=== PATIENT | male | born 1945 | race Caucasian/White ===

== ENCOUNTER → 2019-08-04 | Outpatient (CLI) | payer MEDICARE ==
[~2019-08-04] MED LIST: ASCO10004 PO; Blood pressure med; MV-M1TAB16 PO; magnesium; zinc
[2019-08-04 11:04] LABS: BASOPHILS # (AUTO) 0.03 x10^3/uL (0-0.1); BASOPHILS % (AUTO) 1 % (0-1); EOSINOPHILS % (AUTO) 4 % (1-7); LYMPHOCYTES # (AUTO) 1.76 x10^3/uL (1-3.4); LYMPHOCYTES % (AUTO) 32 % (22-44); MD NO; MEAN CORPUSCULAR HEMOGLOBIN 35.5 pg (27.5-34.5); MEAN CORPUSCULAR HGB CONC 33.3 g/dL (33.2-36.2); MEAN CORPUSCULAR VOLUME 106.6 fL (81-97); MEAN PLATELET VOLUME 7.6 fL (7.4-10.4); MONOCYTES # (AUTO) 0.46 x10^3/uL (0.2-0.8); MONOCYTES % (AUTO) 8 % (2-9); NEUTROPHILS # (AUTO) 3.11 x10^3/uL (1.8-6.8); NEUTROPHILS % (AUTO) 56 % (42-75); PLATELET COUNT 246 x10^3/uL (130-400); RED BLOOD COUNT 4.38 x10^6/uL (4.38-5.82); RED CELL DISTRIBUTION WIDTH 13.5 % (9.4-14.8)
[2019-08-04 11:06] LABS: MICROSCOPIC NOT IND
[2019-08-04 11:15] LABS: INTERNATIONAL NORMALIZED RATIO 0.93 (0.93-1.1); PROTHROMBIN TIME 9.9 Seconds (9.6-11.5)
[2019-08-04 11:17] LABS: ALANINE AMINOTRANSFERASE 52 U/L (12-78); ALBUMIN 3.8 g/dL (3.4-5.0); ANION GAP 4 mmol/L (5-15); CALCIUM 9.1 mg/dL (8.5-10.1); CHLORIDE 109 mmol/L (98-107)
[2019-08-04 11:19] LABS: ALKALINE PHOSPHATASE 68 U/L (45-117); BILIRUBIN,TOTAL 0.6 mg/dL (0.2-1.0); TOTAL PROTEIN 7.5 g/dL (6.4-8.2)
== END | disposition home or self-care (01) ==
LOC: STAR 09:54
PROVIDERS: ATTEND Neurological Surgery
DX: Z01.818 Encounter for other preprocedural examination (principal); M48.061 Spinal stenosis, lumbar region without neurogenic claudication; M47.814 Spondylosis without myelopathy or radiculopathy, thoracic region
CPT/HCPCS: 36415; 71046; 80053; 81003; 85025; 85610; 85730; 93005

== ENCOUNTER 2019-08-13 07:02 | Inpatient (IN) | payer MEDICARE ==
[~2019-08-13] VITALS: Ht 180.3 cm; Wt 98.6 kg
[2019-08-13] MEDS ORDERED: BUPIVACAINE/PF-EPI 0.5% 1:200K ONE (07:10)
[2019-08-13] MEDS ORDERED: BUPIVACAINE/PF-EPI 0.25% 1:200K ONE ×2 (07:10→10:07)
[2019-08-13] MEDS ORDERED: methylPREDNISolone SOD SUCC 40 MG/ML ONE (07:10)
[2019-08-13] MEDS ORDERED: BACITRACIN 50,000 UNIT ONE (07:11)
[2019-08-13] MEDS ORDERED: methylPREDNISolone SOD SUCC 125 MG/2 ML ONE (07:16)
[2019-08-13] MEDS ORDERED: CHLORHEXIDINE 15 ML UDC ONE (07:38)
[2019-08-13] MEDS ORDERED: CHLORHEXIDINE 15 ML UDC MM STA ×2 (07:59→08:57)
[2019-08-13] MEDS ORDERED: LEVO75TA5 PO (08:33)
[2019-08-13] MEDS ORDERED: LISI-170 PO (08:33)
[2019-08-13] MEDS ORDERED: MIDAZOLAM 1 MG/ML, 2ML ONE (08:49)
[2019-08-13] MEDS ORDERED: FENTANYL PF 250 MCG/5ML ONE (08:49)
[2019-08-13] MEDS ORDERED: LACTATED RINGERS 1,000 ML IV SCH (08:56)
[2019-08-13] MEDS ORDERED: CHLORHEXIDINE 15 ML UDC MM ONE (09:30)
[2019-08-13] MEDS ORDERED: ROCURONIUM 10MG/ML,5ML ONE (10:27)
[2019-08-13] MEDS ORDERED: ONDANSETRON 2MG/ML, 2ML ONE (10:27)
[2019-08-13] MEDS ORDERED: PROPOFOL 10 MG/ML, 20ML ONE (10:27)
[2019-08-13] MEDS ORDERED: CEFAZOLIN 1,000 MG ONE (10:27)
[2019-08-13] MEDS ORDERED: SUCCINYLCHOLINE 20 MG/ML, 10ML ONE (10:27)
[2019-08-13] MEDS ORDERED: DEXAMETHASONE 4 MG/ML, 1ML ONE (10:27)
[2019-08-13] MEDS ORDERED: OXYcodone 5 MG/5 ML ORAL.SOL UDC PO PRN (11:00)
[2019-08-13] MEDS ORDERED: HYDROmorphone 1 MG/ML, 1ML INJ IV PRN (11:00)
[2019-08-13] MEDS ORDERED: KETOROLAC 30 MG/1 ML IV PRN (11:00)
[2019-08-13] MEDS ORDERED: MEPERIDINE/PF 25MG/0.5ML IVPush PRN (11:00)
[2019-08-13] MEDS ORDERED: hydrALAzine 20 MG/ML, 1ML IV PRN (11:00)
[2019-08-13] MEDS ORDERED: PROMETHAZINE 25 MG/ML, 1ML IV PRN (11:00)
[2019-08-13] MEDS ORDERED: DIAZEPAM 5 MG/ML, 2ML IV PRN ×2 (11:00)
[2019-08-13] MEDS ORDERED: METOCLOPRAMIDE 5 MG/ML, 2ML IV PRN (11:00)
[2019-08-13] MEDS ORDERED: ALBUTEROL SULFATE 2.5 MG/3 ML NPPB PRN (11:00)
[2019-08-13] MEDS ORDERED: LABETALOL 5MG/ML, 20ML IV PRN (11:00)
[2019-08-13] MEDS ORDERED: ONDANSETRON 2MG/ML, 2ML IVPush PRN (11:00)
[2019-08-13] MEDS ORDERED: FENTANYL PF 100 MCG/2ML ONE (12:26)
[2019-08-13] MEDS ORDERED: ACETAMINOPHEN 650 MG/20.3 ML UDC ONE (12:26)
[2019-08-13] MEDS ORDERED: OXYcodone 5 MG/5 ML ORAL.SOL UDC ONE (12:27)
[2019-08-13] MEDS ORDERED: ACETAMINOPHEN 650 MG/20.3 ML UDC PO PRN (12:30)
[2019-08-13] MEDS: FENTANYL PF 100 MCG/2ML IV PRN ×2 (12:32→12:53)
[2019-08-13] MEDS ORDERED: METHOCARBAMOL 1,000 MG in DEXTROSE 5% 100 ML IV ONE ×2 (12:45→14:30)
[2019-08-13] MEDS ORDERED: MAGNESIUM HYDROXIDE 8%, 30ML UDC PO PRN (14:30)
[2019-08-13] MEDS ORDERED: ONDANSETRON 2MG/ML, 2ML IV PRN (14:30)
[2019-08-13] MEDS ORDERED: CEFAZOLIN PMX 1GM/50ML 50 ML IVPB SCH (14:30)
[2019-08-13] MEDS ORDERED: BISACODYL 10 MG SUPP PR PRN (14:30)
[2019-08-13] MEDS ORDERED: morphine SULFATE 10 MG/ML, 1ML IV PRN (14:30)
[2019-08-13] MEDS ORDERED: TIZANIDINE 2MG TABLET PO PRN (14:30)
[2019-08-13] MEDS ORDERED: PROMETHAZINE 25 MG/ML, 1ML IM PRN (14:30)
[2019-08-13] MEDS: DIPHENHYDRAMINE 50 MG/ML, 1ML IVPush SCH ×2 (14:47→21:17)
[2019-08-13] MEDS: DIPHENHYDRAMINE 25 MG CAPSULE PO SCH ×2 (14:47→21:17)
[2019-08-13] MEDS ORDERED: LISINOPRIL 20 MG TABLET ONE (14:57)
[2019-08-13 15:11] VITALS: BP 156/80
[2019-08-13] MEDS: NS + 20MEQ KCL 1,000 ML IV SCH (15:23)
[2019-08-13] MEDS: LISINOPRIL 20 MG TABLET PO SCH (15:23)
[2019-08-13] MEDS: OXYcodone IR 5MG TABLET PO PRN ×2 (16:24→21:11)
[2019-08-13] MEDS: CEFAZOLIN PMX 1GM/50ML 50 ML IVPB SCH (18:38)
[2019-08-13 19:40] VITALS: BP 119/66
[2019-08-13] MEDS ORDERED: METHOCARBAMOL 750 MG in DEXTROSE 5% 100 ML IV SCH (20:30)
[2019-08-13] MEDS: METHOCARBAMOL 750 MG in DEXTROSE 5% 100 ML IV SCH (21:02)
[2019-08-14 01:13] VITALS: BP 103/67
[2019-08-14] MEDS: CEFAZOLIN PMX 1GM/50ML 50 ML IVPB SCH (02:07)
[2019-08-14] MEDS: NS + 20MEQ KCL 1,000 ML IV SCH ×3 (02:07→20:05)
[2019-08-14 03:50] VITALS: BP 98/60
[2019-08-14] MEDS: METHOCARBAMOL 750 MG in DEXTROSE 5% 100 ML IV SCH ×2 (04:12→12:30)
[2019-08-14] MEDS: HYDROcodone/APAP 10/325 MG TABLET PO PRN ×4 (04:15→20:10)
[2019-08-14] MEDS: DIPHENHYDRAMINE 50 MG/ML, 1ML IVPush SCH (05:47)
[2019-08-14] MEDS: DIPHENHYDRAMINE 25 MG CAPSULE PO SCH (05:47)
[2019-08-14] MEDS: LEVOTHYROXINE 75 MCG TABLET PO SCH (06:00)
[2019-08-14 07:14] VITALS: BP 120/68
[2019-08-14] MEDS: SENNA/DOCUSATE TABLET PO SCH (08:25)
[2019-08-14] MEDS: LISINOPRIL 20 MG TABLET PO SCH (08:26)
[2019-08-14 12:44] VITALS: BP 103/61
[2019-08-14] MEDS ORDERED: METHOCARBAMOL 750 MG in DEXTROSE 5% 100 ML IV SCH ×2 (14:30→20:30)
[2019-08-14 20:03] VITALS: BP 104/57
[2019-08-15] MEDS: HYDROcodone/APAP 10/325 MG TABLET PO PRN ×3 (00:14→08:36)
[2019-08-15 00:20] VITALS: BP 113/68
[2019-08-15] MEDS: LEVOTHYROXINE 75 MCG TABLET PO SCH (05:23)
[2019-08-15 06:25] VITALS: BP 136/77
[2019-08-15] MEDS: LISINOPRIL 20 MG TABLET PO SCH (08:36)
[2019-08-15] MEDS: SENNA/DOCUSATE TABLET PO SCH (08:36)
[2019-08-15] MEDS ORDERED: TIZA4TAB9 PO (09:45)
[2019-08-15] MEDS ORDERED: HYDR-3240 PO (09:45)
== END 2019-08-15 11:00 | disposition home or self-care (01) | DRG 519 ==
LOC: OUT 07:02 → 4NE 13:40 → OUT 22:41 → DCLOUNGE 08-15 10:48
PROVIDERS: ADMIT Neurological Surgery; ATTEND Neurological Surgery
PROC: 01NB0ZZ Release Lumbar Nerve, Open Approach (ICD-10-PCS; 2019-08-13)
PROC: 00NY0ZZ Release Lumbar Spinal Cord, Open Approach (ICD-10-PCS; principal; 2019-08-13 10:00)
DX: M48.062 Spinal stenosis, lumbar region with neurogenic claudication (principal); M47.16 Other spondylosis with myelopathy, lumbar region; Z88.0 Allergy status to penicillin; Z91.030 Bee allergy status
CPT/HCPCS: 72100; G0378; J0690; J1100; J2250; J2405; J2704; J3010; J3480; J0330; J2800; J2920; J2930; J7120